=== PATIENT | female | born 1965 | race African-American/Black ===

== ENCOUNTER 2018-08-16 04:24 | Inpatient (IN) | payer OTHER ==
[~2018-08-16] VITALS: Ht 154.9 cm; Wt 46.7 kg
[2018-08-16] MEDS ORDERED: LEVOFLOXACIN 750MG PREMIX 150 ML IV ONE (06:30)
[2018-08-16] MEDS ORDERED: SODIUM CHLORIDE 0.9% 1000ML BAG (SEPSIS BOLUS) IV ONE (06:30)
[2018-08-16 07:15] LABS: BASOPHILS % 0.4 % (0.0-2.0); EOSINOPHILS % 0.1 % (0.0-5.0); LYMPHOCYTES % 11.7 % (20.0-50.0); MEAN CORPUSCULAR HEMOGLOBIN 30.6 pg (28.0-32.0); MEAN CORPUSCULAR VOLUME 89.9 fL (81.0-99.0); MONOCYTES % 9.6 % (2.0-8.0); NEUTROPHILS % 78.2 % (40.0-76.0); PLATELET 260 x1000/uL (130-400); RED BLOOD CELL COUNT 4.23 mill/uL (4.2-5.4); RED CELL DISTRIBUTION WIDTH 14.2 % (11.6-14.6)
[2018-08-16 07:24] LABS: PARTIAL THROMBOPLASTIN TIME 28.9 sec (23.4-31.0)
[2018-08-16 07:36] LABS: ETHANOL BLOOD < 10 mg/dL
[2018-08-16 07:44] LABS: CHLORIDE < 50 mEq/L (98-107)
[2018-08-16] MEDS ORDERED: SODIUM CHLORIDE 0.9% 1,000 ML IV SCH (09:11)
[2018-08-16] MEDS ORDERED: CLONIDINE 0.1MG TABLET PO PRN (09:15)
[2018-08-16] MEDS ORDERED: DIPHENHYDRAMINE 50MG/ML VIAL IV PRN (09:15)
[2018-08-16] MEDS ORDERED: GUAIFENESIN 200MG/10ML SUGAR FREE UDC PO PRN (09:15)
[2018-08-16] MEDS ORDERED: DOCUSATE SODIUM 100MG CAPSULE PO PRN (09:15)
[2018-08-16] MEDS ORDERED: IPRATROPIUM/ALBUTEROL 0.5-3(2.5)MG/3ML NEB INH PRN (09:15)
[2018-08-16] MEDS ORDERED: MAGNESIUM/ALUMINUM HYDROXIDE/SIMETHICONE 30ML UDC PO PRN (09:15)
[2018-08-16] MEDS ORDERED: HYDROCODONE/ACETAMINOPHEN 5/325MG TABLET PO PRN (09:15)
[2018-08-16] MEDS ORDERED: LORAZEPAM 0.5MG TABLET PO PRN (09:15)
[2018-08-16 09:28] LABS: CLARITY URINE CLOUDY (CLEAR); COLOR URINE YELLOW (YELLOW); KETONES URINE TRACE (NEGATIVE); LEUKOCYTE ESTERASE URINE 1+ (NEGATIVE); NITRITE URINE NEGATIVE (NEGATIVE); OCCULT BLOOD URINE NEGATIVE (NEGATIVE); PROTEIN URINE 2+ (NEGATIVE); SPECIFIC GRAVITY URINE 1.014 (1.005-1.030); UROBILINOGEN URINE 0.2 E.U./dL (0.2-1.0)
[2018-08-16 09:51] LABS: *BARBITURATES SCREEN URINE NEGATIVE (NEGATIVE); *BENZODIAZEPINES SCREEN URINE NEGATIVE (NEGATIVE); *COCAINE SCREEN URINE NEGATIVE (NEGATIVE); METHADONE URINE SCREEN NEGATIVE (NEGATIVE); OPIATES URINE SCREEN NEGATIVE (NEGATIVE); PHENCYCLIDINE URINE SCREEN NEGATIVE (NEGATIVE)
[2018-08-16 09:52] LABS: *AMPHETAMINES SCREEN URINE NEGATIVE (NEGATIVE); CANNABINOID URINE SCREEN NEGATIVE (NEGATIVE)
[2018-08-16 10:51] LABS: BETA HYDROXYBUTYRATE 6.1 mMol/L (0.0-0.3); T4 FREE 1.17 ng/dL (0.76-1.46)
[2018-08-16 11:09] LABS: PHOSPHORUS 9.9 mg/dL (2.5-4.9)
[2018-08-16 12:15] LABS: BG BASE EXCESS 12.7 mmol/L (-2.0-2.0); BG CARBOXYHEMOGLOBIN 0.4 % (0.5-1.5); BG DEOXYHEMOGLOBIN 1.9 % (0.0-5.0); BG HCO3 ACT 32.3 mmol/L (22.0-26.0); BG METHEMOGLOBIN 0.4 % (0.0-1.5); BG OXYGEN SATURATION 98.1 % (92.0-98.5); BG OXYHEMOGLOBIN 97.3 % (94.0-97.0); BG PH 7.712 (7.350-7.450); BG PO2 105.3 mmHg (75.0-100.0); BG SAMPLE SITE RIGHT BRACHIAL; BG VENT MODE ROOM AIR
[2018-08-16] MEDS: SODIUM CHLORIDE 0.45% 1,000 ML IV SCH ×2 (12:45→18:40)
[2018-08-16] MEDS: ACETAMINOPHEN 325MG TABLET PO PRN (13:10)
[2018-08-16 13:21] LABS: CREATINE KINASE 124 IU/L (26-192)
[2018-08-16] MEDS ORDERED: POTASSIUM CHLORIDE INJ 40 MEQ in DEXT 5% WATER 250 ML IV NR (13:30)
[2018-08-16] MEDS ORDERED: METRONIDAZOLE XX SCH (14:15)
[2018-08-16] MEDS ORDERED: CEFTRIAXONE XX SCH (14:15)
[2018-08-16 16:00] VITALS: BP_SYST 100; BP_SYST 106; BP_DIAS 58; BP_DIAS 65
[2018-08-16] MEDS ORDERED: DEXTROSE 50% WATER 50ML SYRINGE IV PRN ×2 (16:45)
[2018-08-16] MEDS: BLOOD SUGAR DIAGNOSTIC STRIP TEST SCH ×2 (17:10→21:36)
[2018-08-16] MEDS: MULTIVITAMINS,THER W-MINERALS TABLET PO SCH (17:15)
[2018-08-16] MEDS: FOLIC ACID 1MG TABLET PO SCH (17:15)
[2018-08-16] MEDS: THIAMINE HCL 100MG TABLET PO SCH (17:15)
[2018-08-16] MEDS: INSULIN LISPRO 100 UNITS/ML SUBCUT SCH ×2 (17:40→21:00)
[2018-08-16] MEDS ORDERED: KCL 20MEQ/100ML PREMIX 100 ML IV SCH (18:00)
[2018-08-16 20:00] VITALS: BP 129/52
[2018-08-16] MEDS: CEFTRIAXONE 1,000 MG in DEXTROSE 5% WATER 50 ML IV SCH (20:11)
[2018-08-16 20:45] LABS: T4 FREE 0.9 ng/dL (0.76-1.46)
[2018-08-16 20:56] LABS: FOLIC ACID (FOLATE) SERUM 16.3 ng/mL (>5.38)
[2018-08-16] MEDS: METRONIDAZOLE 500 MG PREMIX 100 ML IV SCH (21:22)
[2018-08-17] VITALS: BP 99/62
[2018-08-17] MEDS: ACETAMINOPHEN 325MG TABLET PO PRN (01:56)
[2018-08-17 04:00] VITALS: BP 90/63
[2018-08-17] MEDS: SODIUM CHLORIDE 0.45% 1,000 ML IV SCH (04:00)
[2018-08-17] MEDS: BLOOD SUGAR DIAGNOSTIC STRIP TEST SCH ×4 (06:48→20:22)
[2018-08-17 08:00] VITALS: BP 100/63
[2018-08-17 08:22] LABS: BASOPHILS % 0.3 % (0.0-2.0); EOSINOPHILS % 0.5 % (0.0-5.0); HEMATOCRIT. 30.1 % (36.0-48.0); HEMOGLOBIN. 10.1 g/dL (12.0-16.0); LYMPHOCYTES % 15.8 % (20.0-50.0); MEAN CORPUSCULAR HEMOGLOBIN 30.3 pg (28.0-32.0); MEAN CORPUSCULAR VOLUME 90.4 fL (81.0-99.0); MONOCYTES % 8.7 % (2.0-8.0); NEUTROPHILS % 74.7 % (40.0-76.0); PLATELET 204 x1000/uL (130-400); RED BLOOD CELL COUNT 3.33 mill/uL (4.2-5.4); RED CELL DISTRIBUTION WIDTH 14.5 % (11.6-14.6)
[2018-08-17 08:33] LABS: CHLORIDE 68 mEq/L (98-107)
[2018-08-17 08:46] LABS: LDL CHOLESTEROL 136 mg/dL (5-100)
[2018-08-17 08:47] LABS: HDL CHOLESTEROL 77 mg/dL (40-59)
[2018-08-17] MEDS: METRONIDAZOLE 500 MG PREMIX 100 ML IV SCH ×2 (09:31→20:11)
[2018-08-17] MEDS: MULTIVITAMINS,THER W-MINERALS TABLET PO SCH (09:32)
[2018-08-17] MEDS: FOLIC ACID 1MG TABLET PO SCH (09:32)
[2018-08-17] MEDS: THIAMINE HCL 100MG TABLET PO SCH (09:32)
[2018-08-17 12:00] VITALS: BP 98/63
[2018-08-17] MEDS: ONDANSETRON HCL 4MG/2ML INJ IV PRN ×2 (14:00→20:12)
[2018-08-17] MEDS: SODIUM CHLORIDE 0.9% 1,000 ML IV SCH (14:00)
[2018-08-17 15:09] LABS: ANTI-NUCLEAR ANTIBODIES DIRECT Negative (Negative)
[2018-08-17 16:00] VITALS: BP 106/70
[2018-08-17 16:34] LABS: BG BASE EXCESS 12.1 mmol/L (-2.0-2.0); BG CARBOXYHEMOGLOBIN 0.3 % (0.5-1.5); BG DEOXYHEMOGLOBIN 4.8 % (0.0-5.0); BG FRACTION INSPIRED OXYGEN 21; BG HCO3 ACT 36.8 mmol/L (22.0-26.0); BG METHEMOGLOBIN 0.3 % (0.0-1.5); BG OXYGEN SATURATION 95.2 % (92.0-98.5); BG OXYHEMOGLOBIN 94.6 % (94.0-97.0); BG PCO2 49.2 mmHg (35.0-45.0); BG PH 7.492 (7.350-7.450); BG PO2 77.3 mmHg (75.0-100.0); BG SAMPLE SITE RIGHT BRACHIAL; BG TOTAL HEMOGLOBIN 10.2 g/dL (12.0-18.0); BG VENT MODE ROOM AIR
[2018-08-17] MEDS: CEFTRIAXONE 1,000 MG in DEXTROSE 5% WATER 50 ML IV SCH (17:48)
[2018-08-17] MEDS ORDERED: MORPHINE SULFATE 4 MG/ML CPJ (NOT FOR IM USE) IV PRN (18:30)
[2018-08-17 20:00] VITALS: BP 104/68
[2018-08-18] VITALS: BP 90/59
[2018-08-18] MEDS: SODIUM CHLORIDE 0.9% 1,000 ML IV SCH (01:14)
[2018-08-18 04:00] VITALS: BP 97/60
[2018-08-18 05:26] LABS: COMPLEMENT C3 130 mg/dL (82-167)
[2018-08-18] MEDS: BLOOD SUGAR DIAGNOSTIC STRIP TEST SCH (06:10)
[2018-08-18 08:00] VITALS: BP 99/60
[2018-08-18] MEDS: MULTIVITAMINS,THER W-MINERALS TABLET PO SCH (09:00)
[2018-08-18] MEDS: THIAMINE HCL 100MG TABLET PO SCH (09:00)
[2018-08-18] MEDS: METRONIDAZOLE 500 MG PREMIX 100 ML IV SCH (09:00)
[2018-08-18] MEDS: FOLIC ACID 1MG TABLET PO SCH (09:00)
== END 2018-08-18 11:45 | disposition home or self-care (01) | DRG 871 ==
LOC: ER 04:24 → 8WST 08:33 → EDBD 08:33 → EDBEDREQTM 08:36 → EDBEDREQ 08:36 → ENRESERV 11:46
PROVIDERS: ADMIT Family Medicine Adult Medicine; ATTEND Family Medicine Adult Medicine
PROC: 4A00X4Z Measurement of Central Nervous Electrical Activity, External Approach (ICD-10-PCS; principal; 2018-08-17)
DX: A41.9 Sepsis, unspecified organism (principal); G92 Toxic encephalopathy; E87.1 Hypo-osmolality and hyponatremia; E87.4 Mixed disorder of acid-base balance; N17.9 Acute kidney failure, unspecified; N39.0 Urinary tract infection, site not specified; Z68.1 Body mass index [BMI] 19.9 or less, adult; E11.22 Type 2 diabetes mellitus with diabetic chronic kidney disease; E78.00 Pure hypercholesterolemia, unspecified; E78.5 Hyperlipidemia, unspecified; E86.0 Dehydration; E87.6 Hypokalemia; F10.10 Alcohol abuse, uncomplicated; I12.9 Hypertensive chronic kidney disease with stage 1 through stage 4 chronic kidney disease, or unspecified chronic kidney disease; K52.9 Noninfective gastroenteritis and colitis, unspecified; N18.9 Chronic kidney disease, unspecified
CPT/HCPCS: 36415; 36600; 71045; 76770; 80048; 80061; 80305; 80320; 82010; 82140; 82375; 82533; 82550; 82607; 82746; 82805; 82962; 83036; 83605; 83735; 83880; 83930; 83935; 84100; 84133; 84145; 84295; 84300; 84439; 84443; 84481; 84484; 86038; 86160; 93005; 93970; 96365; 96367; 97162; 97166; 97530; 99291; C1893; J0696; J1200; J1956; J2270; J2405; J3480; J3490; J7030; J7060; A4315; G0480

== ENCOUNTER 2021-12-25 20:29 | Emergency (ER) | payer OTHER ==
[~2021-12-25] VITALS: Ht 162.6 cm; Wt 60.0 kg
[2021-12-25] MEDS ORDERED: MORPHINE SULFATE 2 MG/ML CPJ (NOT FOR IM USE) IV ONE (20:45)
[2021-12-25] MEDS ORDERED: ONDANSETRON HCL 4MG/2ML INJ IV ONE (20:45)
[2021-12-25] MEDS ORDERED: SODIUM CHLORIDE 0.9% 500 ML IV ONE (20:45)
[2021-12-25] MEDS ORDERED: MORPHINE SULFATE 10 MG/ML CPJ IM NR (22:00)
[2021-12-26] MEDS ORDERED: MORPHINE SULFATE 2 MG/ML CPJ (NOT FOR IM USE) IV ONE
[2021-12-26 01:36] VITALS: BP 121/65
== END 2021-12-26 01:38 | disposition home or self-care (01) ==
LOC: ER 20:29
DX: N19 Unspecified kidney failure (principal); E86.0 Dehydration; Z51.5 Encounter for palliative care; F12.10 Cannabis abuse, uncomplicated; I50.9 Heart failure, unspecified; Z88.0 Allergy status to penicillin
CPT/HCPCS: 93005; 96361; 96372; 96374; 96375; 99284; J2270; J2405; J7040

== ENCOUNTER 2022-10-29 14:14 | Inpatient (IN) | payer OTHER ==
[~2022-10-29] VITALS: Ht 165.1 cm; Wt 46.3 kg
[2022-10-29] MEDS ORDERED: LORAZEPAM 2MG/ML CPJ IM ONE (14:45)
[2022-10-29] MEDS ORDERED: HALOPERIDOL LACTATE 5MG/ML VIAL IM ONE (15:15)
[2022-10-29 16:09] LABS: BASOPHILS % 0.7 % (0.0-2.0); EOSINOPHILS % 0.1 % (0.0-5.0); HEMATOCRIT. 42.4 % (36.0-48.0); LYMPHOCYTES % 10.5 % (20.0-50.0); MEAN CORPUSCULAR HEMOGLOBIN 28.7 pg (28.0-32.0); MEAN CORPUSCULAR VOLUME 86.6 fL (81.0-99.0); MEAN PLATELET VOLUME 7.7 fl (7.4-10.4); MONOCYTES % 8.9 % (2.0-8.0); NEUTROPHILS % 79.8 % (40.0-76.0); PLATELET 320 x1000/uL (130-400); RED CELL DISTRIBUTION WIDTH 20.1 % (11.6-14.6)
[2022-10-29 16:20] LABS: CHLORIDE 84 mEq/L (98-107)
[2022-10-29 16:29] LABS: ETHANOL BLOOD < 10 mg/dL
[2022-10-29] MEDS ORDERED: GUAIFENESIN 200MG/10ML SUGAR FREE UDC PO PRN (20:00)
[2022-10-29] MEDS ORDERED: IPRATROPIUM/ALBUTEROL 0.5-3(2.5)MG/3ML NEB NEB PRN (20:00)
[2022-10-29] MEDS ORDERED: CLONIDINE 0.1MG TABLET PO PRN (20:00)
[2022-10-29] MEDS ORDERED: LORAZEPAM 2MG/ML CPJ IV PRN (20:00)
[2022-10-29] MEDS ORDERED: ACETAMINOPHEN 325MG TABLET PO PRN ×2 (20:00)
[2022-10-29] MEDS ORDERED: DEXTROSE 50% WATER 50ML SYRINGE IV PRN (20:00)
[2022-10-29] MEDS ORDERED: LORAZEPAM 2MG/ML CPJ IV ONE (20:30)
[2022-10-29] MEDS: INSULIN LISPRO 100 UNITS/ML SUBCUT SCH (21:00)
[2022-10-29] MEDS: BLOOD SUGAR DIAGNOSTIC STRIP TEST SCH (21:55)
[2022-10-29 21:59] LABS: CREATINE KINASE 319 IU/L (26-192)
[2022-10-29 22:04] LABS: PHOSPHORUS 8.9 mg/dL (2.5-4.9)
[2022-10-29 22:10] VITALS: BP 110/84
[2022-10-29 22:43] VITALS: BP 110/84
[2022-10-29 22:59] LABS: BG SAMPLE SITE RIGHT RADIAL; BG VENT MODE RA
[2022-10-29 23:00] LABS: BG BASE EXCESS 4.9 mmol/L (-2.0-2.0); BG FRACTION INSPIRED OXYGEN 21; BG HCO3 ACT 31.4 mmol/L (22.0-26.0); BG PCO2 53.6 mmHg (35.0-45.0); BG PH 7.386 (7.350-7.450); BG PO2 57.5 mmHg (75.0-100.0); BG TOTAL HEMOGLOBIN 15.2 g/dL (12.0-18.0); BG TOTAL RESPIRATORY RATE 14 b/min
[2022-10-29 23:01] LABS: BG CARBOXYHEMOGLOBIN 1.7 % (0.5-1.5); BG DEOXYHEMOGLOBIN 14.9 % (0.0-5.0); BG METHEMOGLOBIN 0.3 % (0.0-1.5); BG OXYGEN SATURATION 84.8 % (92.0-98.5); BG OXYHEMOGLOBIN 83.1 % (94.0-97.0)
[2022-10-29 23:04] LABS: HEPATITIS B SURFACE ANTIGEN NEGATIVE
[2022-10-29] MEDS: DEXT 5%/0.45% NACL 1000ML 1,000 ML IV SCH (23:18)
[2022-10-30] VITALS (14 sets, daily range): BP systolic 102–146; BP diastolic 69–96
[2022-10-30 07:06] LABS: BASOPHILS % 0.6 % (0.0-2.0); EOSINOPHILS % 1.1 % (0.0-5.0); HEMATOCRIT. 42.7 % (36.0-48.0); HEMOGLOBIN. 14.1 g/dL (12.0-16.0); LYMPHOCYTES % 33.7 % (20.0-50.0); MEAN CORPUSCULAR HEMOGLOBIN 29.1 pg (28.0-32.0); MEAN CORPUSCULAR VOLUME 88.3 fL (81.0-99.0); MEAN PLATELET VOLUME 7.7 fl (7.4-10.4); MONOCYTES % 12.2 % (2.0-8.0); NEUTROPHILS % 52.4 % (40.0-76.0); PLATELET 266 x1000/uL (130-400); RED BLOOD CELL COUNT 4.84 mill/uL (4.2-5.4); RED CELL DISTRIBUTION WIDTH 20.2 % (11.6-14.6)
[2022-10-30 07:10] LABS: PARTIAL THROMBOPLASTIN TIME 30.2 sec (23.4-31.0); PROTHROMBIN TIME 10.9 sec (9.6-11.0)
[2022-10-30 07:14] LABS: CHLORIDE 85 mEq/L (98-107)
[2022-10-30 07:31] LABS: CREATINE KINASE 441 IU/L (26-192); CREATINE KINASE MB FRACTION < 1.0 ng/mL (0.5-3.6); HDL CHOLESTEROL 60 mg/dL (40-59); LDL CHOLESTEROL 156 mg/dL (5-100)
[2022-10-30] MEDS: INSULIN LISPRO 100 UNITS/ML SUBCUT SCH ×3 (08:10→20:37)
[2022-10-30] MEDS: AMLODIPINE 5MG TABLET PO SCH (09:00)
[2022-10-30] MEDS ORDERED: SEVELAMER CARBONATE 800 MG TABLET PO SCH (09:00)
[2022-10-30] MEDS: BLOOD SUGAR DIAGNOSTIC STRIP TEST SCH ×3 (12:01→20:36)
[2022-10-30] MEDS: PANTOPRAZOLE SODIUM 40 MG/VIAL IV SCH (13:06)
[2022-10-30] MEDS: SEVELAMER CARBONATE 800 MG TABLET PO SCH ×2 (13:06→17:41)
[2022-10-30] MEDS: DEXT 5%/0.45% NACL 1000ML 1,000 ML IV SCH ×2 (13:06→21:14)
[2022-10-30] MEDS: THIAMINE HCL 100MG TABLET PO SCH (13:06)
[2022-10-30] MEDS: FOLIC ACID/VITAMIN B COMP W-C TABLET PO SCH (13:06)
[2022-10-30 16:49] LABS: CREATINE KINASE 531 IU/L (26-192); CREATINE KINASE MB FRACTION < 1.0 ng/mL (0.5-3.6)
[2022-10-30 17:15] LABS: FOLIC ACID (FOLATE) SERUM 16.7 ng/mL (>5.38)
[2022-10-30] MEDS ORDERED: ATORVASTATIN CALCIUM 20MG TABLET PO SCH (21:00)
[2022-10-30] MEDS ORDERED: NON FORMULARY PATIENT HOME MED PO PRN ×2 (21:30→21:45)
[2022-10-30] MEDS ORDERED: MELATONIN 3MG TABLET PO PRN (21:45)
[2022-10-31] VITALS (9 sets, daily range): BP systolic 105–155; BP diastolic 70–117
[2022-10-31 00:42] LABS: CREATINE KINASE MB FRACTION 1.1 ng/mL (0.5-3.6)
[2022-10-31] MEDS: BLOOD SUGAR DIAGNOSTIC STRIP TEST SCH ×2 (06:47→12:00)
[2022-10-31] MEDS: INSULIN LISPRO 100 UNITS/ML SUBCUT SCH ×2 (07:54→12:00)
[2022-10-31] MEDS ORDERED: SIMETHICONE 40 MG/0.6 ML 15ML PO PRN (08:40)
[2022-10-31] MEDS: FOLIC ACID/VITAMIN B COMP W-C TABLET PO SCH (08:59)
[2022-10-31] MEDS: AMLODIPINE 5MG TABLET PO SCH (08:59)
[2022-10-31] MEDS: SEVELAMER CARBONATE 800 MG TABLET PO SCH ×2 (08:59→12:39)
[2022-10-31] MEDS: PANTOPRAZOLE SODIUM 40 MG/VIAL IV SCH (08:59)
[2022-10-31] MEDS: THIAMINE HCL 100MG TABLET PO SCH (08:59)
[2022-10-31 12:24] LABS: BASOPHILS % 0.9 % (0.0-2.0); EOSINOPHILS % 4.5 % (0.0-5.0); HEMATOCRIT. 36.6 % (36.0-48.0); LYMPHOCYTES % 19.5 % (20.0-50.0); MEAN CORPUSCULAR HEMOGLOBIN 28.7 pg (28.0-32.0); MEAN CORPUSCULAR VOLUME 87.7 fL (81.0-99.0); MEAN PLATELET VOLUME 7.2 fl (7.4-10.4); MONOCYTES % 7.4 % (2.0-8.0); NEUTROPHILS % 67.7 % (40.0-76.0); PLATELET 223 x1000/uL (130-400); RED BLOOD CELL COUNT 4.18 mill/uL (4.2-5.4); RED CELL DISTRIBUTION WIDTH 20.1 % (11.6-14.6)
[2022-10-31] MEDS ORDERED: SIMETHICONE 80MG TABLET CHEW PO PRN (14:45)
== END 2022-10-31 15:56 | disposition home or self-care (01) | DRG 91 ==
LOC: ER 14:14 → 7WST 18:07 → ENRESERV 21:16
PROVIDERS: ADMIT Hospitalist; ATTEND Hospitalist
PROC: 5A1D70Z Performance of Urinary Filtration, Intermittent, Less than 6 Hours Per Day (ICD-10-PCS; principal; 2022-10-30)
PROC: 5A1D70Z Performance of Urinary Filtration, Intermittent, Less than 6 Hours Per Day (ICD-10-PCS; 2022-10-31)
DX: G92.8 Other toxic encephalopathy (principal); N18.6 End stage renal disease; I13.2 Hypertensive heart and chronic kidney disease with heart failure and with stage 5 chronic kidney disease, or end stage renal disease; E83.39 Other disorders of phosphorus metabolism; E83.52 Hypercalcemia; D72.829 Elevated white blood cell count, unspecified; E78.5 Hyperlipidemia, unspecified; I50.9 Heart failure, unspecified; R73.9 Hyperglycemia, unspecified; E78.00 Pure hypercholesterolemia, unspecified; Z99.2 Dependence on renal dialysis; Z88.6 Allergy status to analgesic agent; Z78.1 Physical restraint status; Z88.0 Allergy status to penicillin; Z88.8 Allergy status to other drugs, medicaments and biological substances
CPT/HCPCS: 36415; 36600; 71045; 76700; 80048; 80053; 80061; 80307; 80320; 80329; 82140; 82306; 82330; 82375; 82550; 82553; 82607; 82746; 82805; 82962; 83036; 83605; 83735; 83880; 83970; 84100; 84145; 84439; 84443; 84484; 85025; 85379; 86705; 86709; 86803; 87340; 90935; 92610; 93005; 93306; 93970; 99291; C1893; C9113; J1630; J2060; G0480

== ENCOUNTER 2023-03-03 09:52 | Emergency (ER) | payer MEDICAID, OTHER ==
[~2023-03-03] VITALS: Ht 157.5 cm; Wt 50.0 kg
[2023-03-03 09:54] VITALS: BP 205/118; PULSE 105; RESP 20; TEMP 98.4; O2SAT 99
== END 2023-03-03 10:44 | disposition left against medical advice (07) ==
LOC: ER 10:18
DX: F98.9 Unspecified behavioral and emotional disorders with onset usually occurring in childhood and adolescence (principal); I11.0 Hypertensive heart disease with heart failure; I50.9 Heart failure, unspecified; E78.00 Pure hypercholesterolemia, unspecified; Z88.0 Allergy status to penicillin; Z53.21 Procedure and treatment not carried out due to patient leaving prior to being seen by health care provider
CPT/HCPCS: 99283

== ENCOUNTER 2023-04-03 12:26 | Emergency (ER) | payer OTHER ==
[~2023-04-03] VITALS: Ht 165.1 cm; Wt 55.0 kg
[2023-04-03 12:30] VITALS: BP 143/67; PULSE 68; RESP 18; TEMP 98.4; O2SAT 97
[2023-04-03] MEDS ORDERED: VANCOMYCIN 1G PREMIX 200 ML IV ONE (13:00)
[2023-04-03] MEDS ORDERED: LEVOFLOXACIN 750MG PREMIX 150 ML IV ONE (13:00)
== END 2023-04-03 13:52 | disposition left against medical advice (07) ==
LOC: ER 12:55
DX: R09.02 Hypoxemia (principal); M79.89 Other specified soft tissue disorders; F12.10 Cannabis abuse, uncomplicated; I12.0 Hypertensive chronic kidney disease with stage 5 chronic kidney disease or end stage renal disease; N18.6 End stage renal disease; M79.10 Myalgia, unspecified site; I50.9 Heart failure, unspecified; E11.22 Type 2 diabetes mellitus with diabetic chronic kidney disease; Z99.2 Dependence on renal dialysis; E78.00 Pure hypercholesterolemia, unspecified; Z88.0 Allergy status to penicillin; Z88.6 Allergy status to analgesic agent; Z98.890 Other specified postprocedural states
CPT/HCPCS: 93005; 93970; 99284